=== PATIENT | male | born 1995 | race Caucasian/White ===

== ENCOUNTER 2016-06-07 23:41 | Outpatient (CLI) | payer MEDICAID | END 2016-06-07 23:42 | disposition critical access hospital (66) | DX: R55 Syncope and collapse (principal) ==

== ENCOUNTER 2016-06-07 23:56 | Emergency (ER) | payer MEDICAID | END 2016-06-08 02:59 | disposition home or self-care (01) | DX: R55 Syncope and collapse (principal); R51 Headache; R03.1 Nonspecific low blood-pressure reading ==